=== PATIENT | male | born 1985 | race Caucasian/White ===

== ENCOUNTER 2017-12-31 15:08 | Emergency (ER) | payer OTHER, SELFPAY ==
[2017-12-31 15:11] VITALS: BP 145/83; PULSE 69; RESP 17; TEMP 37.1; O2SAT 100; BMI 24.9
--- NOTE | 2017-12-31 15:23 | ED.VISSUMM ---
- ER Visit Summary Date of Service: 12/31/17 Chief Complaint: Fall History of Present Illness: The patient is a 32 M presenting after fall. Patient was jogging behind a jogging stroller. He states one of the wheels fell off the stroller and he fell over the stroller. He landed on his right arm. He did hit his head. He did not lose consciousness. No amnesia to event. No vomiting or headache since. Last tetanus is unknown. He complains of right elbow and arm pain on arrival. Physical Examination: Vitals are stable. Patient is afebrile. Alert no acute distress. HEENT exam abrasion and hematoma right forehead Neck is nontender Lungs are clear and equal bilaterally. Heart is regular rate and rhythm. Abdomen is soft nontender nondistended. Extremities right elbow tenderness with painful range of motion. Skin is warm and dry. No focal neurologic deficit. Remainder of exam is unremarkable. Emergency Department Course and Treatment: Patient was given tetanus IM. Ice pack was applied. Right elbow x-ray shows subtle and nondisplaced fracture of the radial head. Right forearm and wrist x-ray shows no acute process. Ortho-Glass splint was applied. He was given a sling. He is advised to follow up with Dr. Hudson. Advised to return to the ED for worsening complaints. Disposition: Discharge home Impression: Right radial head fracture, status post mechanical fall This note was generated with [employer] dictation software. It may contain incorrect words, spelling, and punctuation that were not noted in review of the chart prior to signing ED Disposition - Plan for ED Patient: Chief Complaint: Fall Referrals: Ramesh Chavez MD [Primary Care Provider] -
[2017-12-31] MEDS: Diphth,Pertuss(Acell),Tet Vac 0.5 ML Vial IM (16:01)
--- NOTE | 2017-12-31 16:20 | ED.DEP ---
ED Disposition - Plan for ED Patient: Chief Complaint: Fall Instructions: ED Fx Radial Head Prescriptions: Hydrocodone Bitart/Apap 5-325 [[place] 5MG-325MG] 1 tablet PO Q6H PRN PRN 3 Days #10 tablet PRN Reason: Pain Referrals: Ramesh Chavez MD [Primary Care Provider] - Shorty Hudson DO [STAFF PHYSICIAN] -
== END 2017-12-31 16:30 | disposition home or self-care (01) ==
LOC: ED 15:49
PROVIDERS: Emergency Provider Emergency Medicine; Family Provider Family Medicine; PCP Family Medicine
DX: S52.124A Nondisplaced fracture of head of right radius, initial encounter for closed fracture (principal); W18.39XA Other fall on same level, initial encounter; Y93.02 Activity, running; Y92.89 Other specified places as the place of occurrence of the external cause; S00.81XA Abrasion of other part of head, initial encounter; Z23 Encounter for immunization
CPT/HCPCS: 73080; 73090; 73110; 90471; 90715; 99283